=== PATIENT | male | born 1955 | race Caucasian/White ===

== ENCOUNTER → 2018-08-11 08:25 | Outpatient (CLI) | payer OTHER, SELFPAY ==
--- NOTE | 2018-08-11 08:30 | CA_ITS ---
PROCEDURE: 2-D M-mode and color Doppler study INDICATIONS FOR THE TEST: Chest pain COPD Heart Murmur Tobacco Smoking Palpitations Fatigue Syncope Edema HypertensionXDiabetes Mellitus Rheumatic Fever SOB CORTES Obesity HyperlipidemiaX Family History HD Additional History PATIENT INFORMATION HEIGHT: 73 WEIGHT:230 GENDER: Male B/P:175/108 2-D/M-MODE INTERPRETATION: 2-D MEASUREMENTS OBSERVED VALUES IN CMS Right Ventricular Dimension (RVDd) 2.0 Interventricular Septum (Thickness)(IVsd) 1.0 Left Ventricular Internal Dimensions(LVIDd) 5.7 Left Ventricular Posterior Wall (Thickness)(LVPWd) 1.2 Aortic Root 3.6 Aortic Cusp Separation 1.8 Left Atrial Dimensions (LAD) 3.7 2D 1. Left atrium is mildly enlarged, left ventricle is normal size, mild qualitative concentric left ventricular hypertrophy, visually estimated ejection fraction of 55% with no regional wall motion abnormality. 2. The right atrium and right ventricle are normal size and contractility. 3. The aortic valve is minimally thickened and fibrosed. 4. The mitral and tricuspid valve leaflets are minimally thickened 5. The pulmonic valve is poorly present. 6. No significant pericardial effusion noted. DOPPLER INTERROGATION: Doppler interrogation of the aortic, mitral and tricuspid valvular presence of mild mitral and tricuspid regurgitation, tricuspid regurgitation jet velocity is inadequate for calculation of the right ventricular systolic pressure, grade 1 diastolic dysfunction seen with tissue Doppler evidence of raised left atrial pressure. CONCLUSION: 1. Mildly enlarged left atrium, normal left ventricular size, mild concentric left ventricular hypertrophy, visually estimated ejection fraction 55% with no regional wall motion abnormality, grade 1 diastolic dysfunction seen with tissue Doppler evidence of raised left atrial pressure. 2. Mild mitral and tricuspid regurgitation 3. No significant pericardial effusion noted.
== END ==
PROVIDERS: PCP Nurse Practitioner; Visit Provider Nurse Practitioner
DX: I10 Essential (primary) hypertension (principal)
CPT/HCPCS: 93017; 93306

== ENCOUNTER → 2021-11-23 09:24 | Outpatient (CLI) | payer OTHER, SELFPAY ==
--- NOTE | 2021-11-23 09:42 | XR_ITS ---
FINAL REPORT CLINICAL HISTORY: RT KNEE PAIN FINDINGS: 3 views of the right knee were obtained. There is no acute fracture or dislocation. There is moderately advanced medial compartment joint space narrowing with osteophytes. There are small osteophytes along the undersurface of the patella. There is soft tissue swelling anterior to the patella measuring 1.7 cm in thickness. 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 Reviewed, Interpreted and Dictated by Nain Farris MD Transcribed by Prasanna Santiago Authenticated by Nain Farris MD on 11/23/2021 10:42:48 AM [facility]
--- NOTE | 2021-11-23 09:42 | XR_ITS ---
FINAL REPORT CLINICAL HISTORY: LT KNEE PAIN FINDINGS: 3 views of the left knee were obtained. There is no acute fracture or dislocation. There is marked narrowing of the medial compartment joint space with subchondral sclerosis and osteophytes. There are small osteophytes along the undersurface of the patella. There is a 6 mm linear density in the soft tissues overlying the medial tibial metaphysis to may represent a foreign body. 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 Possible 6 mm foreign body overlying the medial tibial metaphysis. Reviewed, Interpreted and Dictated by Nain Farris MD Transcribed by Prasanna Santiago Authenticated by Nain Farris MD on 11/23/2021 10:42:[address] [facility]
== END ==
PROVIDERS: PCP Nurse Practitioner Family; Visit Provider Nurse Practitioner Family
DX: M25.562 Pain in left knee (principal); M25.561 Pain in right knee
CPT/HCPCS: 73562

== ENCOUNTER 2022-07-13 09:00 | Day surgery (SDC) | payer OTHER, SELFPAY ==
[2022-07-08 13:53] VITALS: BMI 25.0
[2022-07-13] VITALS (7 sets, daily range): BP systolic 144–184; BP diastolic 73–97; PULSE 60–70; RESP 18; TEMP 36.6–36.8; O2SAT 98–100
== END 2022-07-13 11:30 | disposition home or self-care (01) ==
LOC: OR 09:01
PROVIDERS: PCP Nurse Practitioner Family; Visit Provider Ophthalmology
PROC: (CPT 66984; principal; 2022-07-13 11:30)
DX: H25.811 Combined forms of age-related cataract, right eye (principal)
CPT/HCPCS: 66984; V2632